=== PATIENT | female | born 1940 | race Caucasian/White ===

== ENCOUNTER → 2016-09-27 16:36 | Outpatient (CLI) | payer MEDICARE | END | disposition home or self-care (01) | LOC: D.MAMMO 14:30 | DX: Z85.3 Personal history of malignant neoplasm of breast (principal) ==

== ENCOUNTER 2018-04-24 10:56 | Emergency (ER) | payer MEDICARE ==
[~2018-04-24] VITALS: Ht 154.9 cm; Wt 74.5 kg
[2018-04-24] MEDS ORDERED: HTN (11:13)
[2018-04-24 11:23] VITALS: Ht 154.9 cm; Wt 74.5 kg
[2018-04-24] MEDS ORDERED: HYDROCODON-ACE1 EA10 PO (13:43)
[2018-04-24 14:46] VITALS: BP 171/90
== END 2018-04-24 14:44 | disposition home or self-care (01) ==
LOC: D.ER 10:56
DX: S00.93XA Contusion of unspecified part of head, initial encounter (principal); W18.30XA Fall on same level, unspecified, initial encounter; Y93.89 Activity, other specified; Y92.89 Other specified places as the place of occurrence of the external cause; S49.91XA Unspecified injury of right shoulder and upper arm, initial encounter; S19.9XXA Unspecified injury of neck, initial encounter; S29.9XXA Unspecified injury of thorax, initial encounter; M25.511 Pain in right shoulder; M79.601 Pain in right arm

== ENCOUNTER 2020-06-16 10:00 | Outpatient (CLI) | payer MEDICARE ==
[2018-04-24 11:23] VITALS: BMI 31.0
[~2020-06-16 10:00] MED LIST: HTN; HYDROCODON-ACE1 EA10 PO
== END 2020-06-16 23:59 | disposition home or self-care (01) ==
LOC: D.MAMMO 10:00
PROVIDERS: ATTEND Internal Medicine
DX: Z12.31 Encounter for screening mammogram for malignant neoplasm of breast (principal)